=== PATIENT | female | born 1980 | race Hispanic/Latino ===

== ENCOUNTER 2019-02-27 08:18 | Day surgery (SDC) | payer OTHER ==
[2019-02-27 08:41] LABS: Absolute Lymphocytes (CBC) 2.2 K/uL (0.7-4.9); Basophils % 0.4 % (0-1.3); Lymphocytes % 32.4 % (15.3-44.8); MPV 8.1 fL (7.6-11.3)
[2019-02-27] MEDS ORDERED: Ringers Lactate 1,000 ML IV ONE ×2 (08:41→08:51)
[2019-02-27] MEDS ORDERED: SCOPOLAMINE HYDROBROMIDE PATCH TD ONE (08:41)
[2019-02-27] MEDS ORDERED: CEFAZOLIN/SWI 1gm 1 GM/10 ML SYR ONE (08:42)
[2019-02-27] MEDS ORDERED: NS 0.9% VIAL 20 ML ONE (08:50)
[2019-02-27] MEDS ORDERED: CEFAZOLIN SODIUM 1 GM/VIAL ONE (08:50)
[2019-02-27] MEDS ORDERED: GENTAMICIN SULF 80 MG/2ML INJ ONE (08:51)
[2019-02-27] MEDS ORDERED: Mastisol Adhesive Liq ONE (08:51)
[2019-02-27] MEDS ORDERED: BACITRACIN 50000 UNIT VIAL ONE (08:51)
[2019-02-27] MEDS ORDERED: dexAMETHasone 10 MG/ML VIAL ONE (09:02)
[2019-02-27] MEDS ORDERED: ONDANSETRON 4 MG/2 ML VIAL ONE ×2 (09:02→13:38)
[2019-02-27] MEDS ORDERED: NS 0.9% VIAL 10 ML ONE ×2 (09:02→11:15)
[2019-02-27] MEDS ORDERED: VECURONIUM 10 MG/VIAL IV ONE ×2 (09:02→10:57)
[2019-02-27] MEDS ORDERED: propofoL 200 MG/20 ML VIAL IV ONE (09:02)
[2019-02-27] MEDS ORDERED: MIDAZOLAM HCL 2 MG/2 ML INJ ONE (09:02)
[2019-02-27] MEDS ORDERED: LIDOCAINE 1% MPF 5 ML VIAL ONE (09:02)
[2019-02-27] MEDS ORDERED: FENTANYL CITR 250 MCG/5 ML ONE ×2 (09:02→12:15)
[2019-02-27] MEDS ORDERED: Phenylephrine HCl 10 MG/ML 1 ML VIAL ONE (11:15)
[2019-02-27] MEDS: Ringers Lactate 1,000 ML IV ONE ×2 (11:36→11:45)
[2019-02-27] MEDS ORDERED: GLYCOPYRROLATE 0.2 MG/ML SYR ONE (13:38)
[2019-02-27] MEDS ORDERED: KETOROLAC 30 MG/ML INJ ONE (13:38)
[2019-02-27] MEDS ORDERED: NEOSTIGMINE 1 MG/ML -5 ML ONE (13:38)
[2019-02-27] MEDS: HYDROMORPHONE HCL 1 MG/ML INJ ONE ×2 (14:43→14:48)
[2019-02-27] MEDS ORDERED: PROMETHAZINE INJ 25 MG/ML AMP ONE (14:54)
[2019-02-27] MEDS ORDERED: HYDROMORPHONE HCL 1 MG/ML INJ ONE (14:55)
[2019-02-27 15:43] VITALS: TEMP 97.3
[2019-02-27] MEDS ORDERED: CODEINE 30MG/APAP 300MG TAB ONE (16:24)
[2019-02-27 16:30] VITALS: BP 106/64; O2SAT 100
--- NOTE | 2019-02-27 22:09 | OP ---
Surgeon: Lonnie Rasmussen MD Wood Fence Installer: Dmitriy. Preoperative Diagnosis: Breast enlargement and descent. Postoperative Diagnosis: Breast enlargement and descent. Procedure Performed: Breast lift. Anesthesia: General. Procedure In Detail: After satisfactory induction of general anesthesia, chest was prepped with DuraPrep, dry sterile drapes applied in the usual manner. A 5 cm template was used to outline the right and left areolas with scalpel. Then transverse curvilinear incision was made. The intervening skin was de- epithelized with dermabrader or EpiCut. Then, a transverse incision was made with electrocautery. The flap was thinned to 1.4 cm thickness, elevated towards the sternum, clavicle, and anterior axillary line. Then inferior lateral incision was made and then excess breast tissue lateral was removed, this was done with #10 blade, electrocautery was used for hemostasis. Then the inferior incision was made. The tissue was rotated into a cone and was sewn with 2-0 PDS suture. Straps were elevated at 12 o'clock, 1:30, and 3 o' clock positions on the right breast. The straps were woven in and out of the pectoralis major muscle, back to the base of the cone, back to pectoralis muscle , back to base of the cone, tied themselves with 2-0 PDS. This was done for the 12 o'clock and 1:30 straps. The 3 o'clock strap was sewn over the sternum at 3 o'clock position with 2-0 Ethibond. The wounds were temporarily stapled shut. Left side was done in an identical manner. The patient was sat up. Symmetry was checked and abnormalities were marked out. The patient returned supine and then the wound was irrigated with antibiotic solution. A 10 NICKOLAS was brought out of the axilla, sewn in place with 2-0 silk and excess skin and subcutaneous tissues excised. The wound was then irrigated with antibiotic solution and then closed in layers 3-0 Vicryl subcu, 3-0 PDS running subcuticular tied in vertical meridian. The patient was sat up. Site for new nipple-areolar complex was marked out. She has been cored out with a 5 mm template and then electrocautery used for hemostasis. Wound was closed with interrupted 4-0 PDS, followed by 4-0 PDS running subcuticular. Dressings consisting of tincture of benzoin, Steri-Strips, 5 x 5's, fluffs, and Nixon wrap. The NICKOLAS drains were sewn in place with 2-0 silk. Amount removed from the right breast was 290 g, left breast 320 g. MER/ROBERTO Voice ID: [id number] Report ID: [id number] JULIO
== END 2019-02-27 17:15 | disposition home or self-care (01) ==
LOC: OR 08:18
PROVIDERS: ATTEND Specialist
PROC: 0HQV0ZZ Repair Bilateral Breast, Open Approach (ICD-10-PCS; principal; 2019-02-27 09:00)
DX: N64.81 Ptosis of breast (principal); N62 Hypertrophy of breast
CPT/HCPCS: 85025; 36415; 81025; 88305; 19316; J2704; J2550; J2370; J1580; J2250; J3010 ×2; J1100; J1170 ×2; J2710; J0690 ×2; J7120 ×3; J2405 ×2